=== PATIENT | female | born 1960 | race African-American/Black ===

== ENCOUNTER 2017-06-07 15:31 | Inpatient (IN) | payer OTHER ==
[~2017-06-07] VITALS: Ht 152.4 cm; Wt 114.4 kg
[~2017-06-07 15:31] MED LIST: ALEVE220 MG PO; COZAAR100 MG PO; COZAAR25 MG PO; ENDOCET 5-3251 EACH PO; GLUCOPHAGE1000 MG PO; HYDROCHLOROTHIA25 MG PO; IRON325 MG PO; LEVEMIR FL100 UNITS/ SC; LOVENOX40 MG/0.4 SC; NOVOLOG PE100 UNITS/ SC; SYNTHROID100 MCG PO; ULTRAM50 MG PO
[2017-06-07 16:17] LABS: MCH 27.3 PG (29.0-34.0); MCHC 31.3 G/DL (30.0-36.0); MCV 87.4 FL (83-99); PLATELET COUNT 176 K/uL (156-360); RBC DIS.WIDTH-CV 16.3 % (11.8-14.6); RBC DIS.WIDTH-SD 52.4 % (39-53); RED BLOOD COUNT 3.66 M/uL (3.80-5.20); WHITE BLOOD COUNT 6.1 K/uL (4.1-10.2)
[2017-06-07 16:23] LABS: CHLORIDE 110 mEq/L (99-109); POTASSIUM 4.2 mEq/L (3.7-5.4); SODIUM 138 mEq/L (136-147)
[2017-06-07 16:25] LABS: GLUCOSE 297 mg/dL (70-99)
[2017-06-07 16:26] LABS: ANION GAP 8 MEQ/L (2-14)
[2017-06-07 16:29] LABS: GFR ESTIMATE (CALCULATED) 54 mL/min/
[2017-06-07 16:30] LABS: UREA NITROGEN (BUN) 26 mg/dL (9-23)
[2017-06-07 16:35] LABS: TROP-I INTERPRETATION NEGATIVE; TROPONIN-I < 0.01 ng/mL (0.0-0.30)
[2017-06-07] MEDS ORDERED: ZYLOPRIM100 MG PO (21:38)
[2017-06-07] MEDS ORDERED: TRADJENTA5 MG PO (21:38)
[2017-06-07] MEDS ORDERED: TRESIBA FL200 UNIT/1 SC (21:38)
[2017-06-07] MEDS ORDERED: ERGOCALCIF50000 UNIT PO (21:39)
[2017-06-07] MEDS ORDERED: ARTIFICIAL TEAR1510 BOTH EYES (21:39)
[2017-06-07] MEDS ORDERED: BENADRYL25 MG PO (21:40)
[2017-06-07] MEDS ORDERED: DIABETIC SILTU118 M1 PO (21:41)
[2017-06-07 22:52] VITALS: BP 169/75
[2017-06-08 04:00] VITALS: BP 132/60
[2017-06-08 08:38] LABS: POINT-OF-CARE METER ID UU13113831
[2017-06-08 08:43] VITALS: BP 120/56
[2017-06-08] MEDS ORDERED: HUMALOG100 UNIT/2 SC ×3 (09:04→09:05)
[2017-06-08 11:58] VITALS: BP 130/58
[2017-06-08 13:06] LABS: POINT-OF-CARE METER ID UU13113831
[2017-06-08 15:09] LABS: INTER. NORMALIZED RATIO 1.3; PROTHROMBIN TIME 15.4 SEC (10.2-12.9)
[2017-06-08 15:12] LABS: PTT 39.1 SEC (25-37)
[2017-06-08 15:25] LABS: IRON 54 MCG/DL (35-150)
[2017-06-08 15:43] LABS: FERRITIN 25 NG/ML (10-291)
[2017-06-08 16:43] VITALS: BP 130/76
[2017-06-08 17:51] LABS: POINT-OF-CARE METER ID UU13113831
[2017-06-08 21:08] VITALS: BP 133/88
[2017-06-08 21:44] LABS: POINT-OF-CARE METER ID UU14162513
[2017-06-08 23:46] VITALS: BP 125/59
[2017-06-09 03:48] VITALS: BP 130/87
[2017-06-09 07:35] VITALS: BP 131/68
[2017-06-09 07:56] LABS: POINT-OF-CARE METER ID UU14162513
[2017-06-09 11:52] VITALS: BP 127/61
[2017-06-09 15:31] VITALS: BP 132/78
[2017-06-09 20:11] VITALS: BP 131/83
[2017-06-09 22:14] LABS: EOSINOPHIL (%) 0 % (0-5); HEMATOCRIT 32.6 % (36.0-46.0); IMMATURE GRANULOCYTE (%) 1.4 % (0.0-0.7); IMMATURE GRANULOCYTE COUNT 0.2 K/uL; INSTRUMENT ABS NEUTROPHIL CT 11.3 K/uL; LYMPHOCYTE COUNT 1.3 K/uL (1.0-2.8); MCH 26.8 PG (29.0-34.0); MCHC 30.7 G/DL (30.0-36.0); MCV 87.4 FL (83-99); MEAN PLAT.VOLUME 12.5 uM^3 (9.5-12.4); MONOCYTE (%) 2.9 % (3-12); MONOCYTE COUNT 0.4 K/uL (0-0.8); NEUTROPHIL (%) 85.5 % (45-76); NEUTROPHIL COUNT 11.3 K/uL (1.8-6.4); PLATELET COUNT 197 K/uL (156-360); RBC DIS.WIDTH-CV 16.1 % (11.8-14.6); RED BLOOD COUNT 3.73 M/uL (3.80-5.20); WHITE BLOOD COUNT 13.2 K/uL (4.1-10.2)
[2017-06-09 22:33] LABS: ANION GAP 13 MEQ/L (2-14); CHLORIDE 101 MEQ/L (99-109); MAGNESIUM 1.8 mg/dl (1.3-2.7); POTASSIUM 4.8 MEQ/L (3.7-5.4); SAMPLE HEMOLYSIS CHECK 1; SAMPLE ICTERIC CHECK 0; SAMPLE LIPEMIA CHECK 0; SODIUM 132 MEQ/L (136-147)
[2017-06-09 22:45] LABS: ALKALINE PHOSPHATASE 144 IU/L (3-129); GFR ESTIMATE (CALCULATED) 50 mL/min/
[2017-06-09 22:48] LABS: GLUCOSE 509 mg/dL (70-99); UREA NITROGEN (BUN) 40 mg/dL (9-23)
[2017-06-09 23:23] VITALS: BP 160/72
[2017-06-10 00:11] LABS: ADD MIUA? NO; BILIRUBIN NEGATIVE; BLOOD NEGATIVE; COLOR YELLOW ((YELLOW)); GLUCOSE (STRIP) >=500; KETONES NEGATIVE; LEUKOCYTES NEGATIVE; NITRITE NEGATIVE; PROTEIN (STRIP) NEGATIVE; SPECIFIC GRAVITY 1.017 (1.000-1.030); UCUL ADDED? NO; UROBILINOGEN 0.2 MG/DL (0.2-1.0)
[2017-06-10 03:45] VITALS: BP 129/66
[2017-06-10 07:28] LABS: POINT-OF-CARE METER ID UU14162513
[2017-06-10 07:29] VITALS: BP 130/80
[2017-06-10 08:43] LABS: POINT-OF-CARE METER ID UU14162513
[2017-06-10 09:20] LABS: POINT-OF-CARE METER ID UU13113831
[2017-06-10 09:20] LABS: POINT-OF-CARE METER ID UU14162513
[2017-06-10 09:20] LABS: POINT-OF-CARE METER ID UU13113831
[2017-06-10 09:22] LABS: ANION GAP 8 MEQ/L (2-14); CHLORIDE 104 MEQ/L (99-109); POTASSIUM 4.2 MEQ/L (3.7-5.4); SAMPLE HEMOLYSIS CHECK 0; SAMPLE ICTERIC CHECK 0; SAMPLE LIPEMIA CHECK 0; SODIUM 132 MEQ/L (136-147)
[2017-06-10 09:47] LABS: GFR ESTIMATE (CALCULATED) > 59 mL/min/; UREA NITROGEN (BUN) 42 mg/dL (9-23)
[2017-06-10 09:54] LABS: GLUCOSE 412 mg/dL (70-99)
[2017-06-10 10:09] LABS: POINT-OF-CARE METER ID UU14162513
[2017-06-10 10:09] LABS: POINT-OF-CARE METER ID UU14162513
[2017-06-10 10:09] LABS: POINT-OF-CARE METER ID UU14162513
[2017-06-10 10:09] LABS: POINT-OF-CARE METER ID UU14162513
[2017-06-10 10:57] VITALS: BP 139/68
[2017-06-10 12:10] VITALS: BP 141/76
[2017-06-10 12:27] LABS: POINT-OF-CARE METER ID UU14162513
[2017-06-10 13:02] LABS: Estimated Average Glucose 197 mg/dL (70-123); HEMOGLOBIN A1c (GLYCOHEMOGLOB) 8.5 % HGB (Below 5.7)
[2017-06-10 14:14] LABS: POINT-OF-CARE METER ID UU14162513
[2017-06-10 15:01] LABS: POINT-OF-CARE METER ID UU14162513
[2017-06-10 15:27] LABS: POINT-OF-CARE METER ID UU13113831
[2017-06-10 16:41] LABS: POINT-OF-CARE METER ID UU13113819
[2017-06-10 19:35] VITALS: BP 128/59
[2017-06-10 20:05] LABS: POINT-OF-CARE METER ID UU13113831
[2017-06-10 23:21] VITALS: BP 104/50
[2017-06-11 00:44] LABS: POINT-OF-CARE METER ID UU13113831
[2017-06-11 05:23] LABS: POINT-OF-CARE METER ID UU14162513
[2017-06-11 06:53] VITALS: BP 123/58
[2017-06-11 08:20] LABS: POINT-OF-CARE METER ID UU14162513
[2017-06-11 09:46] LABS: POINT-OF-CARE METER ID UU13113831
[2017-06-11 10:33] VITALS: BP 139/64
[2017-06-11 12:03] LABS: POINT-OF-CARE METER ID UU14162513
[2017-06-11 16:45] VITALS: BP 141/64
[2017-06-11 17:38] LABS: POINT-OF-CARE METER ID UU14162513
[2017-06-11 20:00] VITALS: BP 125/58
[2017-06-11 21:23] LABS: POINT-OF-CARE METER ID UU14162513
[2017-06-11 23:59] VITALS: BP 112/59
[2017-06-12 07:46] VITALS: BP 113/55
[2017-06-12 08:57] LABS: POINT-OF-CARE METER ID UU14162513
[2017-06-12 12:11] VITALS: BP 107/57
[2017-06-12 12:24] LABS: POINT-OF-CARE METER ID UU14162513
[2017-06-12 15:17] VITALS: BP 106/51
[2017-06-12 17:36] LABS: POINT-OF-CARE METER ID UU14162513
[2017-06-12 18:51] VITALS: BP 121/65
[2017-06-12 21:51] LABS: POINT-OF-CARE METER ID UU13113700
[2017-06-13 00:52] VITALS: BP 115/58
[2017-06-13 02:39] LABS: POINT-OF-CARE METER ID UU13113700
[2017-06-13 04:30] VITALS: BP 127/58
[2017-06-13 08:35] LABS: POINT-OF-CARE METER ID UU14162513
[2017-06-13 09:26] VITALS: BP 142/65
[2017-06-13 11:31] VITALS: BP 147/76
[2017-06-13 12:05] LABS: POINT-OF-CARE METER ID UU14162513
[2017-06-13 14:59] LABS: ANION GAP 7 MEQ/L (2-14); CHLORIDE 104 MEQ/L (99-109); POTASSIUM 4.9 MEQ/L (3.7-5.4); SAMPLE HEMOLYSIS CHECK 0; SAMPLE ICTERIC CHECK 0; SAMPLE LIPEMIA CHECK 0; SODIUM 133 MEQ/L (136-147)
[2017-06-13 15:05] LABS: GFR ESTIMATE (CALCULATED) 54 mL/min/; UREA NITROGEN (BUN) 33 mg/dL (9-23)
[2017-06-13 15:09] LABS: GLUCOSE 514 mg/dL (70-99)
[2017-06-13 15:32] VITALS: BP 115/56
[2017-06-13 19:57] VITALS: BP 120/58
[2017-06-14 00:01] VITALS: BP 145/67
[2017-06-14 03:04] LABS: POINT-OF-CARE METER ID UU14162513
[2017-06-14 09:19] LABS: POINT-OF-CARE METER ID UU13113700
[2017-06-14 09:29] VITALS: BP 142/79
[2017-06-14 13:54] LABS: POINT-OF-CARE METER ID UU13113831; POINT-OF-CARE USER ID PUTHJD81
[2017-06-14 17:48] LABS: POINT-OF-CARE METER ID UU13113831; POINT-OF-CARE USER ID PUTHJD81
[2017-06-14 18:11] LABS: POINT-OF-CARE METER ID UU13113700
[2017-06-14 21:36] LABS: POINT-OF-CARE METER ID UU14162513
[2017-06-14 23:56] VITALS: BP 137/70
[2017-06-15 08:35] LABS: POINT-OF-CARE METER ID UU13113831
[2017-06-15] MEDS ORDERED: SPIRIVA RESPIMAT4 GM IH (10:08)
[2017-06-15] MEDS ORDERED: ADVAIR HFA120 INHALA IH (10:08)
[2017-06-15] MEDS ORDERED: Robitussin AC,Tussi- PO (10:08)
[2017-06-15] MEDS ORDERED: DUONEB 2.5-0.5 M3 ML AEROSOL (10:27)
[2017-06-15 12:54] LABS: POINT-OF-CARE METER ID UU14162513
== END 2017-06-15 14:30 | disposition home or self-care (01) | DRG 181 ==
LOC: EME 15:31 → 5WEST 21:42 → EDOF 21:42 → ENRESERV 21:48 → 5WEST 22:35 → CANRESERV 06-08 10:37 → ENRESERV 06-08 10:37 → 5WEST 06-15 14:30
PROVIDERS: Hospitalist; Internal Medicine Pulmonary Disease; Nurse Practitioner Family; Physician Assistant Medical
DX: C7A.090 Malignant carcinoid tumor of the bronchus and lung (principal); E11.65 Type 2 diabetes mellitus with hyperglycemia; T38.0X5A Adverse effect of glucocorticoids and synthetic analogues, initial encounter; E66.01 Morbid (severe) obesity due to excess calories; Z68.42 Body mass index [BMI] 45.0-49.9, adult; I10 Essential (primary) hypertension; K74.60 Unspecified cirrhosis of liver; K76.6 Portal hypertension; E03.9 Hypothyroidism, unspecified; D64.9 Anemia, unspecified; R04.2 Hemoptysis; Z79.4 Long term (current) use of insulin; Z80.41 Family history of malignant neoplasm of ovary; Z85.42 Personal history of malignant neoplasm of other parts of uterus; Z86.711 Personal history of pulmonary embolism; Z86.718 Personal history of other venous thrombosis and embolism; Z87.891 Personal history of nicotine dependence; Z90.710 Acquired absence of both cervix and uterus
CPT/HCPCS: 70450; 71010; 71020; 71275; 77012; 80048; 80053; 81003; 82010; 82728; 82803; 82948; 83036; 83540; 83735; 84466; 84484; 85025; 85027; 85610; 85730; 87070; 87116; 87205; 87206; 87278; 88108; 88305; 88341 TC; 88342 TC; 93005; 94010; 94060; 94640; 94640 76; 94726; 94729; 94760; 99202; 99281; 99285; G0378; J1650; J1815; J1940; J2250; J2310; J2930; J3010; J7030; J7040; J7512

== ENCOUNTER → 2017-06-24 | Outpatient (CLI) | payer OTHER ==
[~2017-06-24] MED LIST changes: +ADVAIR HFA120 INHALA IH; +ARTIFICIAL TEAR1510 BOTH EYES; +BENADRYL25 MG PO; +DIABETIC SILTU118 M1 PO; +DUONEB 2.5-0.5 M3 ML AEROSOL; +ERGOCALCIF50000 UNIT PO; +HUMALOG100 UNIT/2 SC; +Robitussin AC,Tussi- PO; +SPIRIVA RESPIMAT4 GM IH; +TRADJENTA5 MG PO; +TRESIBA FL200 UNIT/1 SC; +ZYLOPRIM100 MG PO
[2017-06-24 15:58] LABS: BASE EXCESS -0.8 mEq/L (-3 to +3); BICARBONATE 23.4 mEq/L (22-26); CARBOXY HGB 2.1 % (0-5); METHEMOGLOBIN 0.7 % (0-1.5); PCO2 36 mm Hg (35-45); PO2 76 mm Hg (80-100); pH 7.42 (7.35-7.45)
[2017-06-24 16:09] LABS: COMMENTS - BLOOD GASES A+C+; FI02 21 %; SITE LR
== END | disposition home or self-care (01) ==
LOC: NUC 13:49
PROVIDERS: Thoracic Surgery (Cardiothoracic Vascular Surgery)
DX: D38.1 Neoplasm of uncertain behavior of trachea, bronchus and lung (principal)
CPT/HCPCS: 36600; 78598; 82803; A9540; A9567

== ENCOUNTER 2017-09-09 07:37 | Day surgery (SDC) | payer OTHER ==
[~2017-09-09] VITALS: Ht 152.4 cm; Wt 111.1 kg
[2017-09-09 08:26] VITALS: BP 113/76
[2017-09-09 08:37] LABS: HEMATOCRIT 36.2 % (36.0-46.0); HEMOGLOBIN 10.8 G/DL (11.9-15.5); MCH 22.2 PG (29.0-34.0); MCHC 29.8 G/DL (30.0-36.0); MCV 74.3 FL (83-99); RBC DIS.WIDTH-CV 20.7 % (11.8-14.6); RBC DIS.WIDTH-SD 54.6 % (39-53); RED BLOOD COUNT 4.87 M/uL (3.80-5.20); WHITE BLOOD COUNT 7.3 K/uL (4.1-10.2)
[2017-09-09 08:38] LABS: INTER. NORMALIZED RATIO 1.2
[2017-09-09 08:41] LABS: PTT 32.3 SEC (25-37)
[2017-09-09 08:57] LABS: ALBUMIN 3.6 G/DL (3.2-4.8); ALKALINE PHOSPHATASE 172 IU/L (3-129); ALT (GPT) 21 IU/L (3-49); AST (GOT) 38 IU/L (2-34); CHLORIDE 106 MEQ/L (99-109); CREATININE 1.2 MG/DL (0.6-1.3); GFR ESTIMATE (CALCULATED) > 59 mL/min/; GLUCOSE 344 mg/dL (70-99); SODIUM 137 MEQ/L (136-147); TOTAL BILIRUBIN 0.8 MG/DL (0.0-1.0); TOTAL PROTEIN 7.6 G/DL (6.4-8.3); UREA NITROGEN (BUN) 30 mg/dL (9-23)
[2017-09-09 09:21] LABS: ANISOCYTOSIS 1+; BASOPHIL (%) 0.4 % (0-1); EOSINOPHIL (%) 6.7 % (0-5); EOSINOPHIL COUNT 0.5 K/uL (0-0.3); HYPOCHROMASIA 1+; IMMATURE GRANULOCYTE (%) 0.4 % (0.0-0.7); LYMPHOCYTE (%) 23.5 % (15-42); LYMPHOCYTE COUNT 1.7 K/uL (1.0-2.8); MICROCYTOSIS 2+; MONOCYTE (%) 11.8 % (3-12); MONOCYTE COUNT 0.9 K/uL (0-0.8); NEUTROPHIL (%) 57.2 % (45-76); NEUTROPHIL COUNT 4.2 K/uL (1.8-6.4); OVALOCYTES 1+; PLAT.SUFFICIENCY ADEQUATE; POIKILOCYTOSIS 2+; POLYCHROMASIA 2+
[2017-09-09 10:46] LABS: PLATELET COUNT 226 K/uL (156-360)
[2017-09-09 14:50] VITALS: BP 155/72
[2017-09-09 15:43] VITALS: BP 150/72
== END 2017-09-09 15:35 | disposition home or self-care (01) ==
LOC: SDC 07:37
PROVIDERS: Thoracic Surgery (Cardiothoracic Vascular Surgery)
PROC: 0B9J8ZX Drainage of Left Lower Lung Lobe, Via Natural or Artificial Opening Endoscopic, Diagnostic (ICD-10-PCS; principal; 2017-09-09)
DX: C7A.098 Malignant carcinoid tumors of other sites (principal); E11.9 Type 2 diabetes mellitus without complications; E66.01 Morbid (severe) obesity due to excess calories; Z68.42 Body mass index [BMI] 45.0-49.9, adult; Z87.891 Personal history of nicotine dependence; Z86.711 Personal history of pulmonary embolism; Z86.718 Personal history of other venous thrombosis and embolism; Z85.42 Personal history of malignant neoplasm of other parts of uterus; Z80.41 Family history of malignant neoplasm of ovary; Z80.49 Family history of malignant neoplasm of other genital organs; Z79.4 Long term (current) use of insulin
CPT/HCPCS: 80053; 82948; 85025; 85610; 85730; 86850; 86900; 86901; J0330; J0690; J1200; J2354; J2405; J3010; J7050; J7120; S0028

== ENCOUNTER 2017-09-22 21:07 | Inpatient (IN) | payer OTHER ==
[~2017-09-22] VITALS: Ht 152.4 cm; Wt 119.4 kg
[2017-09-23 06:58] VITALS: BP 134/74
[2017-09-23 07:07] LABS: INTER. NORMALIZED RATIO 1.2
[2017-09-23 07:10] LABS: PTT 31.2 SEC (25-37)
[2017-09-23 07:22] LABS: ALBUMIN 3.6 G/DL (3.2-4.8); ALKALINE PHOSPHATASE 163 IU/L (3-129); ALT (GPT) 21 IU/L (3-49); AST (GOT) 43 IU/L (2-34); CHLORIDE 104 MEQ/L (99-109); CREATININE 1.3 MG/DL (0.6-1.3); GFR ESTIMATE (CALCULATED) 54 mL/min/; GLUCOSE 200 mg/dL (70-99); SODIUM 136 MEQ/L (136-147); TOTAL BILIRUBIN 0.9 MG/DL (0.0-1.0); TOTAL PROTEIN 7.5 G/DL (6.4-8.3); UREA NITROGEN (BUN) 24 mg/dL (9-23)
[2017-09-23 17:55] VITALS: BP 101/54
[2017-09-23 18:07] VITALS: BP 115/80
[2017-09-23 18:15] VITALS: BP 108/73
[2017-09-23 20:00] VITALS: BP 113/80
[2017-09-24] VITALS (20 sets, daily range): BP systolic 88–136; BP diastolic 40–88
[2017-09-24 07:04] LABS: HEMATOCRIT 20.3 % (36.0-46.0); MCH 21.6 PG (29.0-34.0); MCHC 29.6 G/DL (30.0-36.0); RBC DIS.WIDTH-CV 20.8 % (11.8-14.6); RBC DIS.WIDTH-SD 54.9 % (39-53); WHITE BLOOD COUNT 12.4 K/uL (4.1-10.2)
[2017-09-24 07:06] LABS: RED BLOOD COUNT 2.78 M/uL (3.80-5.20)
[2017-09-24 07:16] LABS: PLAT.SUFFICIENCY ADEQUATE; PLATELET COUNT 239 K/uL (156-360)
[2017-09-24 07:21] LABS: CHLORIDE 104 MEQ/L (99-109); CREATININE 1.3 MG/DL (0.6-1.3); GFR ESTIMATE (CALCULATED) 54 mL/min/; GLUCOSE 281 mg/dL (70-99); POTASSIUM 5.2 MEQ/L (3.7-5.4); SODIUM 132 MEQ/L (136-147); UREA NITROGEN (BUN) 27 mg/dL (9-23)
[2017-09-24 10:08] LABS: MCH 21.5 PG (29.0-34.0); MCHC 29.1 G/DL (30.0-36.0); NRBC (%) 0.2 /100 WBC (0-0); PLATELET COUNT 266 K/uL (156-360); RBC DIS.WIDTH-CV 21.1 % (11.8-14.6); RBC DIS.WIDTH-SD 54.9 % (39-53); RED BLOOD COUNT 3.11 M/uL (3.80-5.20); WHITE BLOOD COUNT 12.5 K/uL (4.1-10.2)
[2017-09-24 10:12] LABS: HEMOGLOBIN 6.7 G/DL (11.9-15.5)
[2017-09-24 14:20] LABS: HEMATOCRIT 25.5 % (36.0-46.0); HEMOGLOBIN 7.8 G/DL (11.9-15.5)
[2017-09-24 22:45] LABS: BASOPHIL (%) 0.2 % (0-1); EOSINOPHIL (%) 0 % (0-5); HEMATOCRIT 24.9 % (36.0-46.0); HEMOGLOBIN 8.1 G/DL (11.9-15.5); IMMATURE GRANULOCYTE (%) 0.6 % (0.0-0.7); LYMPHOCYTE (%) 17.5 % (15-42); MCH 24.6 PG (29.0-34.0); MCHC 32.5 G/DL (30.0-36.0); MCV 75.7 FL (83-99); MONOCYTE (%) 15.5 % (3-12); MONOCYTE COUNT 1.8 K/uL (0-0.8); NEUTROPHIL (%) 66.2 % (45-76); NEUTROPHIL COUNT 7.7 K/uL (1.8-6.4); RBC DIS.WIDTH-CV 20.3 % (11.8-14.6); RBC DIS.WIDTH-SD 55.7 % (39-53); RED BLOOD COUNT 3.29 M/uL (3.80-5.20); WHITE BLOOD COUNT 11.6 K/uL (4.1-10.2)
[2017-09-24 23:18] LABS: PLATELET COUNT UNABLE TO REPORT K/uL (156-360)
[2017-09-25] VITALS (19 sets, daily range): BP systolic 64–115; BP diastolic 47–97
[2017-09-25 05:53] LABS: HEMATOCRIT 26.8 % (36.0-46.0); HEMOGLOBIN 8.4 G/DL (11.9-15.5); MCH 24.3 PG (29.0-34.0); MCHC 31.3 G/DL (30.0-36.0); MCV 77.5 FL (83-99); RBC DIS.WIDTH-CV 20.5 % (11.8-14.6); RBC DIS.WIDTH-SD 57.3 % (39-53); RED BLOOD COUNT 3.46 M/uL (3.80-5.20); WHITE BLOOD COUNT 12.4 K/uL (4.1-10.2)
[2017-09-25 05:54] LABS: PLATELET COUNT 179 K/uL (156-360)
[2017-09-25 06:19] LABS: CHLORIDE 100 MEQ/L (99-109); CREATININE 1.6 MG/DL (0.6-1.3); GFR ESTIMATE (CALCULATED) 43 mL/min/; GLUCOSE 359 mg/dL (70-99); POTASSIUM 4.6 MEQ/L (3.7-5.4); SODIUM 129 MEQ/L (136-147)
[2017-09-25 06:20] LABS: UREA NITROGEN (BUN) 42 mg/dL (9-23)
[2017-09-26] VITALS (20 sets, daily range): BP systolic 78–121; BP diastolic 49–83
[2017-09-26 13:03] LABS: HEMATOCRIT 28.6 % (36.0-46.0); HEMOGLOBIN 8.8 G/DL (11.9-15.5); MCH 23.8 PG (29.0-34.0); MCHC 30.8 G/DL (30.0-36.0); MCV 77.5 FL (83-99); NRBC (%) 0.1 /100 WBC (0-0); RBC DIS.WIDTH-CV 21.4 % (11.8-14.6); RBC DIS.WIDTH-SD 58.5 % (39-53); RED BLOOD COUNT 3.69 M/uL (3.80-5.20)
[2017-09-26 13:18] LABS: CHLORIDE 98 MEQ/L (99-109); CREATININE 1.5 MG/DL (0.6-1.3); GFR ESTIMATE (CALCULATED) 46 mL/min/; GLUCOSE 259 mg/dL (70-99); POTASSIUM 4.9 MEQ/L (3.7-5.4); SODIUM 126 MEQ/L (136-147); UREA NITROGEN (BUN) 43 mg/dL (9-23)
[2017-09-26 14:10] LABS: PLAT.SUFFICIENCY ADEQUATE; PLATELET COUNT 171 K/uL (156-360)
[2017-09-27] VITALS (11 sets, daily range): BP systolic 91–123; BP diastolic 44–92
[2017-09-27 10:12] LABS: HEMATOCRIT 29.1 % (36.0-46.0); HEMOGLOBIN 9.2 G/DL (11.9-15.5); MCH 24.9 PG (29.0-34.0); MCHC 31.6 G/DL (30.0-36.0); MCV 78.9 FL (83-99); NRBC (%) 0.6 /100 WBC (0-0); RBC DIS.WIDTH-CV 22.3 % (11.8-14.6); RBC DIS.WIDTH-SD 61.1 % (39-53); RED BLOOD COUNT 3.69 M/uL (3.80-5.20); WHITE BLOOD COUNT 18.4 K/uL (4.1-10.2)
[2017-09-27 10:19] LABS: PLATELET COUNT 256 K/uL (156-360)
[2017-09-27 10:33] LABS: CHLORIDE 101 MEQ/L (99-109); CREATININE 1.3 MG/DL (0.6-1.3); GFR ESTIMATE (CALCULATED) 54 mL/min/; GLUCOSE 187 mg/dL (70-99); POTASSIUM 4.5 MEQ/L (3.7-5.4); SODIUM 131 MEQ/L (136-147); UREA NITROGEN (BUN) 42 mg/dL (9-23)
[2017-09-28 03:26] VITALS: BP 115/58
[2017-09-28 07:49] LABS: CHLORIDE 101 MEQ/L (99-109); CREATININE 1.3 MG/DL (0.6-1.3); GFR ESTIMATE (CALCULATED) 54 mL/min/; POTASSIUM 4.2 MEQ/L (3.7-5.4); SODIUM 132 MEQ/L (136-147); UREA NITROGEN (BUN) 41 mg/dL (9-23)
[2017-09-28 07:50] LABS: GLUCOSE 88 mg/dL (70-99)
[2017-09-28 07:57] LABS: HEMATOCRIT 28.5 % (36.0-46.0); HEMOGLOBIN 8.6 G/DL (11.9-15.5); MCH 23.9 PG (29.0-34.0); MCHC 30.2 G/DL (30.0-36.0); MCV 79.2 FL (83-99); NRBC (%) 0.7 /100 WBC (0-0); PLATELET COUNT 269 K/uL (156-360); RBC DIS.WIDTH-CV 22.2 % (11.8-14.6); RBC DIS.WIDTH-SD 61.4 % (39-53); WHITE BLOOD COUNT 21.4 K/uL (4.1-10.2)
[2017-09-28 08:00] VITALS: BP 115/56
[2017-09-28 11:22] VITALS: BP 137/62
[2017-09-28 15:27] VITALS: BP 127/61
[2017-09-28 19:17] VITALS: BP 123/64
[2017-09-28 23:33] VITALS: BP 111/56
[2017-09-29 07:57] LABS: HEMATOCRIT 26.2 % (36.0-46.0); HEMOGLOBIN 7.9 G/DL (11.9-15.5); MCH 24.3 PG (29.0-34.0); MCHC 30.2 G/DL (30.0-36.0); MCV 80.6 FL (83-99); NRBC (%) 0.6 /100 WBC (0-0); PLATELET COUNT 237 K/uL (156-360); RBC DIS.WIDTH-CV 22.8 % (11.8-14.6); RBC DIS.WIDTH-SD 65.3 % (39-53); RED BLOOD COUNT 3.25 M/uL (3.80-5.20); WHITE BLOOD COUNT 19.4 K/uL (4.1-10.2)
[2017-09-29 08:20] LABS: CHLORIDE 101 MEQ/L (99-109); CREATININE 1.3 MG/DL (0.6-1.3); GFR ESTIMATE (CALCULATED) 54 mL/min/; GLUCOSE 70 mg/dL (70-99); POTASSIUM 4.6 MEQ/L (3.7-5.4); SODIUM 133 MEQ/L (136-147); UREA NITROGEN (BUN) 44 mg/dL (9-23)
[2017-09-29 08:42] VITALS: BP 95/50
[2017-09-29 11:27] VITALS: BP 129/60
[2017-09-29 15:28] VITALS: BP 121/58
[2017-09-29 19:40] VITALS: BP 121/61; BP 174/72
[2017-09-29 23:35] VITALS: BP 131/92
[2017-09-30 03:59] VITALS: BP 112/55
[2017-09-30 05:34] LABS: HEMATOCRIT 26.2 % (36.0-46.0); HEMOGLOBIN 7.8 G/DL (11.9-15.5); MCH 23.6 PG (29.0-34.0); MCHC 29.8 G/DL (30.0-36.0); MCV 79.4 FL (83-99); NRBC (%) 0.7 /100 WBC (0-0); PLATELET COUNT 271 K/uL (156-360); RBC DIS.WIDTH-CV 22.8 % (11.8-14.6); RBC DIS.WIDTH-SD 63.4 % (39-53); WHITE BLOOD COUNT 22.3 K/uL (4.1-10.2)
[2017-09-30 06:04] LABS: CHLORIDE 99 MEQ/L (99-109); CREATININE 1.5 MG/DL (0.6-1.3); GFR ESTIMATE (CALCULATED) 46 mL/min/; POTASSIUM 4.5 MEQ/L (3.7-5.4); SODIUM 130 MEQ/L (136-147); UREA NITROGEN (BUN) 50 mg/dL (9-23)
[2017-09-30 06:05] LABS: GLUCOSE 91 mg/dL (70-99)
[2017-09-30 08:15] VITALS: BP 116/68
[2017-09-30 11:49] VITALS: BP 121/58
[2017-09-30] MEDS ORDERED: DOCUSATE SODIU100 MG PO (12:22)
[2017-09-30] MEDS ORDERED: THERAGRAN1 TABLET PO (12:22)
[2017-09-30] MEDS ORDERED: ENDOCET 5-3251 EACH PO (12:22)
[2017-09-30] MEDS ORDERED: MUCINEX600 MG PO (12:22)
[2017-09-30] MEDS ORDERED: DIGOXIN125 MCG PO (12:22)
[2017-09-30] MEDS ORDERED: FE C PLUS TABL1 EACH PO (12:22)
[2017-09-30] MEDS ORDERED: LOPRESSOR25 MG PO (12:22)
== END 2017-09-30 17:30 | disposition home or self-care (01) | DRG 164 ==
LOC: ENRESERV 21:07 → 2SOUTH 09-23 06:23 → ENRESERV 09-23 07:02 → CANRESERV 09-23 07:02 → 2SOUTH 09-23 14:04 → ENRESERV 09-23 16:09 → 2SOUTH 09-23 16:20 → 4WEST 09-23 17:45 → ENRESERV 09-27 17:39 → 4WEST 09-27 17:50 → ENRESERV 09-27 17:50 → 4WEST 09-27 17:50 → 3EAST 09-27 19:10
PROVIDERS: Thoracic Surgery (Cardiothoracic Vascular Surgery)
DX: C7A.090 Malignant carcinoid tumor of the bronchus and lung (principal); R04.2 Hemoptysis; Z80.41 Family history of malignant neoplasm of ovary; K74.60 Unspecified cirrhosis of liver; E11.65 Type 2 diabetes mellitus with hyperglycemia; D64.9 Anemia, unspecified; E66.01 Morbid (severe) obesity due to excess calories; E66.9 Obesity, unspecified; E03.9 Hypothyroidism, unspecified; I10 Essential (primary) hypertension; Z68.43 Body mass index [BMI] 50.0-59.9, adult; Z90.2 Acquired absence of lung [part of]; Z86.718 Personal history of other venous thrombosis and embolism; Z86.711 Personal history of pulmonary embolism; Z88.8 Allergy status to other drugs, medicaments and biological substances; Z80.49 Family history of malignant neoplasm of other genital organs; Z90.710 Acquired absence of both cervix and uterus; Z91.048 Other nonmedicinal substance allergy status; Z85.42 Personal history of malignant neoplasm of other parts of uterus; Z87.891 Personal history of nicotine dependence
CPT/HCPCS: 71045; 80048; 80048 91; 80053; 82948; 85014; 85018; 85025; 85027; 85610; 85730; 86850; 86900; 86901; 86905; 86920; 87641; 88305; 88309; 88331; 88332; 88341 TC; 88342 TC; 94010; 94640; 94640 76; 94760; 94799; 97530 GO; 97530 GP; 99202; C1753; J0131; J0690; J1100; J1160; J1170; J1644; J1815; J1885; J1940; J2250; J2405; J2710; J2795; J3010; J7040; J7050; J7120; P9016; Q0175

== ENCOUNTER → 2017-10-27 | Outpatient (CLI) | payer OTHER ==
[~2017-10-27] MED LIST changes: +DIGOXIN125 MCG PO; +DOCUSATE SODIU100 MG PO; +FE C PLUS TABL1 EACH PO; +LOPRESSOR25 MG PO; +MUCINEX600 MG PO; +THERAGRAN1 TABLET PO
== END | disposition home or self-care (01) ==
LOC: RES 12:54
DX: D48.9 Neoplasm of uncertain behavior, unspecified (principal); R04.2 Hemoptysis; R91.8 Other nonspecific abnormal finding of lung field
CPT/HCPCS: 94618